=== PATIENT | male | born 1985 | race African-American/Black ===

== ENCOUNTER 2025-03-21 18:40 | Emergency (ER) | payer MEDICAID ==
[~2025-03-21] VITALS: Ht 180.3 cm; Wt 82.0 kg
[2025-03-21 18:51] VITALS: BP 131/62; PULSE 109; RESP 18; TEMP 37; O2SAT 99
== END 2025-03-21 20:22 | disposition left against medical advice (07) ==
LOC: ER 18:40
DX: R45.851 Suicidal ideations (principal)
CPT/HCPCS: 99281